=== PATIENT | female | born 1985 | race Caucasian/White ===

== ENCOUNTER 2020-08-01 12:59 | Emergency (ER) | payer OTHER ==
[2020-08-01 15:52] LABS: HEMOGLOBIN 14.3 gm/dl (12.3-15.3); RED BLOOD COUNT 4.58 M/UL (4.00-5.10); WHITE BLOOD COUNT 8.2 K/UL (4.5-11.0)
[2020-08-01 16:35] LABS: BUN/CREATININE RATIO 22 (0-10)
[2020-08-01] MEDS ORDERED: PROTONIX40 MG PO (18:57)
== END 2020-08-01 19:05 | disposition home or self-care (01) ==
LOC: ER1 12:59
PROVIDERS: Emergency Medicine
DX: R07.9 Chest pain, unspecified (principal); R59.0 Localized enlarged lymph nodes; R06.02 Shortness of breath; R11.0 Nausea; F17.200 Nicotine dependence, unspecified, uncomplicated; Z88.0 Allergy status to penicillin; Z88.1 Allergy status to other antibiotic agents; Z88.5 Allergy status to narcotic agent
CPT/HCPCS: 71045; 80053; 82550; 82553; 83735; 83874; 83880; 84484; 84703; 85025; 85379; 93005; 93971; 96365; 99285

== ENCOUNTER 2022-01-30 08:40 | Day surgery (SDC) | payer OTHER ==
[~2022-01-30] VITALS: Ht 162.6 cm; Wt 99.3 kg
[~2022-01-30 08:40] MED LIST: PROTONIX40 MG PO
[2022-01-30 09:22] LABS: HEMOGLOBIN 14.1 gm/dl (12.3-15.3); RED BLOOD COUNT 4.58 M/UL (4.00-5.10); WHITE BLOOD COUNT 8.5 K/UL (4.5-11.0)
[2022-01-30] MEDS ORDERED: ROXICODONE5 MG PO (09:29)
[2022-01-30] MEDS ORDERED: METOPROLOL SUCC25 MG PO (09:30)
[2022-01-30] MEDS ORDERED: PERCOCET 5-3251 EACH PO (13:03)
[2022-01-30] MEDS ORDERED: IBUPROFEN600 MG PO (13:03)
[2022-01-30] MEDS ORDERED: TYLENOL EXTRA500 MG PO (13:03)
[2022-01-30] MEDS ORDERED: COLACE100 MG PO (13:03)
--- NOTE | 2022-01-31 17:06 | NUR ---
notified dr. dimas of patient pain hydrocodone not helping relieve pain. patient complaints of constipation- will see patient and received order.
--- NOTE | 2022-01-31 17:08 | NUR ---
in 1 hour rounds at times patient sleeping soundly
[2022-01-31] MEDS ORDERED: PERCOCET 5-3251 EACH PO (20:08)
== END 2022-02-01 10:51 | disposition home or self-care (01) ==
LOC: OR 08:40 → MED SURG 4 16:54 → OR 02-01 10:51
PROVIDERS: Obstetrics & Gynecology
DX: D25.9 Leiomyoma of uterus, unspecified (principal); N85.8 Other specified noninflammatory disorders of uterus; K66.0 Peritoneal adhesions (postprocedural) (postinfection); F17.290 Nicotine dependence, other tobacco product, uncomplicated; Z97.5 Presence of (intrauterine) contraceptive device; Z88.5 Allergy status to narcotic agent; Z88.0 Allergy status to penicillin
CPT/HCPCS: 81001; 84703; 85027; C1769; J1100; J1580; J1885; J2001; J2250; J2270; J2405; J2550; J2704; J2795; J3010